=== PATIENT | male | born 1990 | race Caucasian/White ===

== ENCOUNTER 2020-02-02 12:15 | Emergency (ER) | payer MEDICAID ==
[~2020-02-02] VITALS: Ht 175.3 cm; Wt 77.1 kg
[2020-02-02 12:54] VITALS: BP 126/81
--- NOTE | 2020-02-02 13:00 | NUR ---
C/O PAIN TO R 3RD DIGIT AFTER INJURING IT WHILE PLAYING FOOTBALL. OBVIOUS DEFORMITY NOTED
[2020-02-02] MEDS ORDERED: LIDOCAINE MPF 1% 10 MG/ML VIAL INJ ONE (13:45)
[2020-02-02 14:31] VITALS: BP 126/81
--- NOTE | 2020-02-02 14:31 | NUR ---
Patient discharged with v/s stable. Written and verbal after care instructions given and explained. Patient alert, oriented and verbalized understanding of instructions. Ambulatory with steady gait. All questions addressed prior to discharge. ID band removed. Patient advised to follow up with PMD. Rx of [place] 5mg-325mg given. Patient educated on indication of medication including possible reaction and side effects. Opportunity to ask questions provided and answered.
== END 2020-02-02 14:31 | disposition home or self-care (01) ==
LOC: MED 12:15
DX: S62.622A Displaced fracture of middle phalanx of right middle finger, initial encounter for closed fracture (principal); X58.XXXA Exposure to other specified factors, initial encounter; Y93.61 Activity, american tackle football; Y92.89 Other specified places as the place of occurrence of the external cause; Y99.8 Other external cause status
CPT/HCPCS: 26725; 73140; 99284; J2001; 99283

== ENCOUNTER 2022-08-01 22:24 | Emergency (ER) | payer BC, MEDICAID ==
[~2022-08-01] VITALS: Ht 172.7 cm; Wt 72.6 kg
[2022-08-01 23:03] VITALS: BP 117/76
--- NOTE | 2022-08-01 23:46 | NUR ---
PT TO BED 5
--- NOTE | 2022-08-01 23:51 | NUR ---
X-ray tech at [facility] to perform L ankle x-ray. Pt tolerating procedure well. Swelling noted to the L lateral malleolus.
--- NOTE | 2022-08-02 00:04 | NUR ---
31 Y/O M presents with L ankle pain 5/10 with sharp pain. pt stated he twisted his ankle playing football xlast night. pt ankle appears swollen and sensitive to touch. pt stated ankel hurts when attempting to walk. pt did not take any medications for pain or swelling. pt is A&Ox4, skin intact, respirations even and unlabored. pt denies any nvd or headaches. pmh- heart murmur NKA
[2022-08-02] MEDS ORDERED: IBUP-2213 PO (00:46)
--- NOTE | 2022-08-02 00:52 | NUR ---
Patient discharged with v/s stable. Written and verbal after care instructions given and explained. Elliot wrap in place. Pt declined crutches. Patient alert, oriented and verbalized understanding of instructions. Ambulatory with steady gait. All questions addressed prior to discharge. ID band removed. Patient advised to follow up with PMD. Rx of Motrin given. Patient educated on indication of medication including possible reaction and side effects. Opportunity to ask questions provided and answered. Work note provided.
[2022-08-02 00:58] VITALS: BP 115/72
== END 2022-08-02 00:52 | disposition home or self-care (01) ==
LOC: MED 22:24
DX: S93.492A Sprain of other ligament of left ankle, initial encounter (principal); X58.XXXA Exposure to other specified factors, initial encounter; Y93.89 Activity, other specified; Y92.89 Other specified places as the place of occurrence of the external cause; Y99.8 Other external cause status
CPT/HCPCS: 73610; 99283; Q0092

== ENCOUNTER 2022-12-14 14:17 | Emergency (ER) | payer BC, MEDICAID ==
[~2022-12-14] VITALS: Ht 172.7 cm; Wt 77.1 kg
[~2022-12-14 14:17] MED LIST: IBUP-2213 PO
[2022-12-14 14:35] VITALS: BP 127/82; PULSE 75; RESP 18; TEMP 97.2; O2SAT 100
[2022-12-14 15:44] VITALS: BP 127/82; PULSE 75; RESP 18; TEMP 97.2; O2SAT 100
== END 2022-12-14 15:44 | disposition home or self-care (01) ==
LOC: MED 14:17
DX: H92.01 Otalgia, right ear (principal); I25.10 Atherosclerotic heart disease of native coronary artery without angina pectoris; Z79.899 Other long term (current) drug therapy
CPT/HCPCS: 99281